=== PATIENT | female | born 1945 | race Caucasian/White ===

== ENCOUNTER 2016-11-03 09:33 | Day surgery (SDC) | payer MEDICARE, OTHER ==
[~2016-11-03 09:33] MED LIST: Lactated Ringers 1,000 ML IV SCH; Lidocaine 1%/Sod Bicarbonate in NS 8.4% 1 ML Syringe PRN; Sodium Chloride 0.9% 10 ML Syringe FLUSH PRN
[2016-11-03] MEDS ORDERED: Propofol 200 MG/20 ML SDV ONE ×3 (10:02→12:17)
--- NOTE | 2016-11-03 10:43 | PCM.PREANE ---
Preanesthetic Assessment - Anesthesia/Transfusion/Family Hx Anesthesia History: Prior Anesthesia Without Reaction Family History of Anesthesia Reaction: No Transfusion History: No Prior Transfusion(s) - Review of Systems General: No Symptoms Pulmonary: No Symptoms Cardiovascular: No Symptoms Gastrointestinal: No symptoms Neurological: No Symptoms Other: Reports: Easy Bruising - Physical Assessment NPO Status Date: 11/02/16 NPO Status Time: 16:00 Pulse: 76 O2 Sat by Pulse Oximetry: 100 Respiratory Rate: 18 Blood Pressure: 134/53 Temperature: 36.5 C Height: 1.7 m Weight: 86.183 kg Mental Status: Alert & Oriented x3 Airway Class: Mallampati = 1 Dentition: Reports: Normal Dentition, Caries Thyro-Mental Finger Breadths: 3 Mouth Opening Finger Breadths: 3 ROM/Head Extension: Full Lungs: Clear to auscultation, Normal respiratory effort Cardiovascular: Regular Rate, Regular Rhythm - Allergies Allergies/Adverse Reactions: Allergies Allergy/AdvReac Type Severity Reaction Status Date / Time No Known Allergies Allergy Verified 11/02/16 14:44 - Anesthesia Plan Pre-Op Medication Ordered: None - Acknowledgements Anesthesia Type Planned: MAC Pt an Appropriate Candidate for the Planned Anesthesia: Yes Alternatives and Risks of Anesthesia Discussed w Pt/Guardian: Yes Pt/Guardian Understands and Agrees with Anesthesia Plan: Yes PreAnesthesia Questionnaire HEENT History: Reports: Cataract Other HEENT History: cross eyed Cardiovascular History: Reports: Hypertension Respiratory History: Reports: Asthma, Sleep apnea, Other (see below) Other Respiratory History: use of cpap/bipap, history of bronchospasms 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 History: Reports: Musculoskeletal History: Other Musculoskeletal History: musle spasms, osteopenia Neurological History: Reports: Neuropathy, peripheral Other Neuro History: balance complications, weakness Psychiatric History: Reports: None Endocrine/Metabolic History: Reports: Hypothyroidism Other Endocrine/Metabolic History: sjdrogrens Hematologic History: Reports: Other (see below) Other Hematologic History: electrolyte imbalances with dehydration Immunologic History: Reports: None Oncologic (Cancer) History: Reports: None Dermatologic History: Reports: None - Past Surgical History HEENT Surgical History: Reports: Cataract surgery, Naso-sinus surgery, Oral surgery, Other (see below) Other HEENT Surgeries/Procedures: rhinoplasty, septoplasty, wisdom tooth extraction GI Surgical History: Reports: Other (see below) Other GI Surgeries/Procedures: sigmoidoscopy Female Surgical History: Reports: section Neurological Surgical History: Reports: Other (see below) Other Neurological Surgeries/Procedures: EEG, spinal tap Musculoskeletal Surgical History: Reports: Other (see below) Other Musculoskeletal Surgeries/Procedures:: fibula fracture and repair, humerus fracture and repair, rotator cuff surgery x3 Oncologic Surgical History: Reports: Other (see below) Other Oncologic Surgeries/Procedures: chemotherapy for sjogrens - SUBSTANCE USE Smoking Status *Q: Never Smoker Tobacco Use Within Last Twelve Months: No Second Hand Smoke Exposure: No Days Per Week of Alcohol Use: 7 Number of Drinks Per Day: 2 Total Drinks Per Week: 14 Recreational Drug Use History: No - HOME MEDS Home Medications: Home Meds Denosumab [Prolia] 60 mg IM ASDIRECTED 09/27/14 [History] Hydroxychloroquine Sulfate [Plaquenil] 400 mg PO DAILY 09/27/14 [History] Levothyroxine [Synthroid] 50 mcg PO ACBREAKFAST 09/27/14 [History] Lisinopril 10 mg PO DAILY 09/27/14 [History] Albuterol [Proair HFA] 1 - 2 puff INH Q4H PRN 11/02/16 [History] Ca Carbonate/Vitamin D3/Vit K [Citracal Soft Chew] 1 tab PO BID 11/02/16 [ History] Cevimeline HCl 30 mg PO TID 11/02/16 [History] Cholecalciferol (Vitamin D3) [Vitamin D3] 1,000 mg PO DAILY 11/02/16 [History] Fish Oil/Borage/Flax/Om3,6,9#1 [[place] 3-6-9 1,200 mg Softgel] 1,200 mg PO DAILY 11/02/16 [History] Fluticasone Propionate [Flonase Allergy Relief] 1 spray NASBOTH DAILY 11/02/16 [ History] Magnesium Oxide 800 mg PO DAILY 11/02/16 [History] Modafinil [Modafinil] 200 mg PO DAILY PRN 11/02/16 [History] Multivitamin [Daily Multiple Vitamin] 1 tab PO DAILY 11/02/16 [History] Naproxen Sodium [Aleve] 1 - 2 tab PO Q6H PRN 11/02/16 [History] Ondansetron [Ondansetron] 4 mg PO TID PRN 11/02/16 [History] cycloSPORINE [Restasis] 1 drop EYEBOTH DAILY 11/02/16 [History] predniSONE [Prednisone] 10 mg PO DAILY PRN 11/02/16 [History] traMADol [Ultram] 50 mg PO TID PRN 11/02/16 [History] - CURRENT (IN HOUSE) MEDS Current Meds: Current Medications Lactated Ringer's (Ringers, Lactated) 1,000 mls @ 125 mls/hr IV ASDIRECTED TRINO Stop: 11/03/16 23:00 Lidocaine/Sodium Bicarbonate (Buffered Lidocaine 1% In Ns 8.4%) 0.25 ml .XX ONETIME PRN PRN Reason: Prior to IV Start Stop: 11/03/16 18:00 Sodium Chloride (Saline Flush) 10 ml FLUSH ASDIRECTED PRN PRN Reason: Keep Vein Open Stop: 11/03/16 18:00 Discontinued Medications Fentanyl (Sublimaze) Confirm Administered Dose 100 mcg .ROUTE .STK-MED ONE Stop: 11/03/16 10:54 Lidocaine HCl (Xylocaine-Mpf 1%) Confirm Administered Dose 4 mls @ as directed .ROUTE .STK-MED ONE Stop: 11/03/16 10:54 Midazolam HCl (Versed 1 Mg/Ml) Confirm Administered Dose 2 mg .ROUTE .STK-MED ONE Stop: 11/03/16 10:54 Propofol (Diprivan 20 Ml) Confirm Administered Dose 200 mg .ROUTE .STK-MED ONE Stop: 11/03/16 10:03
[2016-11-03] MEDS ORDERED: Midazolam 1 MG/ML 2 ML SDV ONE (10:53)
[2016-11-03] MEDS ORDERED: fentaNYL 100 MCG/2 ML SDV ONE (10:53)
[2016-11-03] MEDS ORDERED: Lidocaine 1% 4 ML ONE (10:53)
[2016-11-03] MEDS ORDERED: Lactated Ringers 1,000 ML ONE (12:25)
--- NOTE | 2016-11-03 12:28 | PCM48HPAN ---
Post Anesthesia Note - EVALUATION WITHIN 48HRS OF ANESTHETIC Vital Signs in Normal Range: Yes Patient Participated in Evaluation: Yes Respiratory Function Stable: Yes Airway Patent: Yes Cardiovascular Function Stable: Yes Hydration Status Stable: Yes Pain Control Satisfactory: Yes Nausea and Vomiting Control Satisfactory: Yes Mental Status Recovered: Yes
--- NOTE | 2016-11-03 12:34 | PCM.OPNOTE ---
- General Post-Op/Procedure Note Date of Surgery/Procedure: 11/03/16 Operative Procedure(s): 1. Diagnostic EGD with cold forceps biopsy. 2. Diagnostic colonoscopy with hemorrhoidal banding Pre Op Diagnosis: Rectal bleeding, dysphagia Post-Op Diagnosis: Gastritis, duodenitis, esophagitis, hiatal hernia, internal hemorrhoids [place] [facility] [place]geon: Floresita Adams Anesthesia Provider: Yusef Jones Pathology: 1. Small bowel biopsy 2. Antral biopsy 3. Distal esophageal biopsy Fluid Replacement, Intraop: 600 (mL crystalloid ) EBL in mLs: 1 Complications: None Condition: Good Free Text/Narrative:: INDICATION FOR PROCEDURE: The patient is a 71-year-old woman who was referred to me by Dr. Hogan for evaluation for dysphagia and rectal bleeding. Performing a colonoscopy and EGD and the associated risks of the procedures had been discussed with the patient. The patient found these risks acceptable and agreed to proceed. DESCRIPTION OF PROCEDURE: The patient was taken to the operating room and placed in the left lateral decubitus position. After induction of adequate sedation, a bite block was placed. A standard Olympus gastroscope was inserted into the oropharynx and guided down the esophagus without difficulty. The gastroesophageal junction was appreciated at 35 cm from the teeth. There was no evidence of stricture. There was mild esophagitis at the GE junction. The scope was advanced into the stomach, and there was mild diffuse gastritis. The scope was passed into the proximal jejunum and the duodenum which showed petechia in D1 and D2. There were no ulcerations. The proximal jejunum was grossly normal in appearance. Multiple cold forceps biopsies were obtained of the proximal jejunum and duodenum. The scope was withdrawn into the antrum, and additional cold forceps biopsies were obtained. The remainder of the gastric body was examined, and there were no additional abnormalities. The scope was retroflexed, and there was a sliding hiatal hernia. The hiatus was measured at 39 cm. the hernia was estimated to measure 4 cm in length. The scope was straightened and withdrawn to the GE junction. Additional cold forceps biopsies were obtained of the distal esophagus. The scope was withdrawn through the remainder of the esophagus and no further abnormalities were noted. The posterior oropharynx was grossly normal in appearance. The scope was fully withdrawn and attention was then turned to the colonoscopy. A digital rectal exam was performed which was unremarkable. An adult Olympus colonoscope followed by a pediatric colonoscope was inserted into the rectum and guided under direct visualization to the appendiceal orifice and ileocecal valve. The patient had a history of a lower abdominal midline incision. She did have what felt like adhesive disease and a small palpable ventral hernia. Counter pressure was utilized to navigate the scope. This did increase the difficulty of advancement of the scope, switching to a pediatric colonoscope. The scope was then slowly withdrawn through the colon. The quality of the prep was excellent. There was no evidence of angiodysplasias, diverticulum or mass lesions. The scope was withdrawn into the rectum and retroflexed. There was mild prominence of the patient's internal hemorrhoids. Hemorrhoidal banding was completed. The scope was straightened, the colon was desufflated, and the scope was withdrawn. The patient was awakened from sedation and transferred to the recovery room in stable condition having tolerated the procedure well. POSTOPERATIVE PLAN: I discussed with the patient my intraoperative findings and recommendations. Start omeprazole daily. I have asked the patient to follow a GERD\gastritis diet. Repeat colonoscopy in 10 years unless a change in bowel habits.
[2016-11-03 13:17] VITALS: BP 122/80
== END 2016-11-03 13:20 | disposition home or self-care (01) ==
LOC: JD.SDS 09:33
PROVIDERS: ATTEND Surgery
DX: K29.50 Unspecified chronic gastritis without bleeding (principal); K44.9 Diaphragmatic hernia without obstruction or gangrene; K64.8 Other hemorrhoids; I10 Essential (primary) hypertension; E03.9 Hypothyroidism, unspecified; G47.30 Sleep apnea, unspecified; J45.909 Unspecified asthma, uncomplicated; K21.9 Gastro-esophageal reflux disease without esophagitis
CPT/HCPCS: 43239; 45398; 88305; J2250; J3010; J7120; 00902; J2704

== ENCOUNTER → 2017-01-28 | Day surgery (SDC) | payer MEDICARE, OTHER ==
[~2017-01-28] MED LIST changes: +Albuterol 0.042% 1.25 MG/3 ML Neb Soln NEB ONE; +Albuterol 0.083% 2.5 MG/3 ML Neb Soln NEB ONE; +Ibuprofen 600 MG Tab PO PRN; +Lidocaine 1% 4 ML ONE; +Lidocaine 1% with EPINEPHrine 1:100,000 20 ML MDV ONE; +Lidocaine 1%/Sod Bicarbonate in NS 8.4% 1 ML Syringe IV PRN; -Lidocaine 1%/Sod Bicarbonate in NS 8.4% 1 ML Syringe PRN; +Midazolam 1 MG/ML 2 ML SDV ONE; +Ondansetron 4 MG/2 ML SDV IVPUSH PRN; +Ondansetron 4 MG/2 ML SDV ONE; +Propofol 200 MG/20 ML SDV ONE; +Rocuronium 50 MG/5 ML Vial ONE; +Sodium Chloride 0.9% 50 ML SDV ONE; +ceFAZolin 1 GM Vial ONE; +fentaNYL 100 MCG/2 ML SDV IVPUSH PRN; +fentaNYL 250 MCG/5 ML SDV ONE
--- NOTE | 2017-01-28 07:27 | PCM.PREANE ---
Preanesthetic Assessment - Anesthesia/Transfusion/Family Hx Anesthesia History: Prior Anesthesia Without Reaction Family History of Anesthesia Reaction: No Transfusion History: No Prior Transfusion(s) - Review of Systems General: Malaise Pulmonary: Shortness of Breath ("feels tight") Cardiovascular: No Symptoms Gastrointestinal: No symptoms Neurological: Numbness (Toes and ankles) Other: Reports: Easy Bruising, Thyroid Problems (hypo) - Physical Assessment NPO Status Date: 01/27/17 NPO Status Time: 00:00 Pulse: 71 O2 Sat by Pulse Oximetry: 98 Respiratory Rate: 16 Blood Pressure: 128/80 Temperature: 37.1 C Height: 1.7 m Weight: 86.183 kg ASA Class: 3 Mental Status: Alert & Oriented x3 Airway Class: Mallampati = 1 Dentition: Reports: Normal Dentition Thyro-Mental Finger Breadths: 3 Mouth Opening Finger Breadths: 3 ROM/Head Extension: Full Lungs: Wheezing (left lower base dry) Cardiovascular: Regular Rate, Regular Rhythm, No Murmurs - Lab Values: Laboratory Last Values WBC 5.27 K/mm3 (3.98-10.04) 01/26/17 12:27 RBC 4.20 M/mm3 (3.98-5.22) 01/26/17 12:27 Hgb 13.4 gm/L (11.2-15.7) 01/26/17 12:27 Hct 39.3 % (34.1-44.9) 01/26/17 12:27 MCV 93.6 fl (79.4-94.8) 01/26/17 12:27 MCH 31.9 pg (25.6-32.2) 01/26/17 12:27 MCHC 34.1 g/dl (32.2-35.5) 01/26/17 12:27 RDW Std Deviation 42.4 fL (36.4-46.3) 01/26/17 12:27 Plt Count 168 K/mm3 (182-369) L 01/26/17 12:27 MPV 8.3 fl (9.4-12.3) L 01/26/17 12:27 Neut % (Auto) 64.7 % (34.0-71.1) 01/26/17 12:27 Lymph % (Auto) 21.6 % (19.3-51.7) 01/26/17 12:27 Camp % (Auto) 9.7 % (4.7-12.5) 01/26/17 12:27 Eos % (Auto) 2.7 (0.7-5.8) 01/26/17 12:27 Baso % (Auto) 1.1 % (0.1-1.2) 01/26/17 12:27 Neut # (Auto) 3.41 K/mm3 (1.56-6.13) 01/26/17 12:27 Lymph # (Auto) 1.14 K/mm3 (1.18-3.74) L 01/26/17 12:27 Camp # (Auto) 0.51 K/mm3 (0.24-0.36) H 01/26/17 12:27 Eos # (Auto) 0.14 K/mm3 (0.04-0.36) 01/26/17 12:27 Baso # (Auto) 0.06 K/mm3 (0.01-0.08) 01/26/17 12:27 Sodium 137 mEq/L (136-145) 01/26/17 12:27 Potassium 4.0 mEq/L (3.5-5.1) 01/26/17 12:27 Chloride 102 mEq/L (98-107) 01/26/17 12:27 Carbon Dioxide 25 mEq/L (21-32) 01/26/17 12:27 Anion Gap 14.0 (5-15) 01/26/17 12:27 BUN 13 mg/dL (7-18) 01/26/17 12:27 Creatinine 0.9 mg/dL (0.55-1.02) 01/26/17 12:27 Est Cr Clr Drug Dosing 57.37 mL/min 01/26/17 12:27 Estimated GFR (MDRD) > 60 mL/min (>60) 01/26/17 12:27 BUN/Creatinine Ratio 14.4 (14-18) 01/26/17 12: Glucose 87 mg/dL (80-115) 01/26/17 12:27 Calcium 8.8 mg/dL (8.5-10.1) 01/26/17 12:27 Total Bilirubin 0.6 mg/dL (0.2-1.0) 01/26/17 12:27 AST 21 U/L (15-37) 01/26/17 12:27 ALT 27 U/L (14-59) 01/26/17 12:27 Alkaline Phosphatase 41 U/L (46-116) L 01/26/17 12:27 Total Protein 8.4 g/dl (6.4-8.2) H 01/26/17 12:27 Albumin 3.9 g/dl (3.4-5.0) 01/26/17 12:27 Globulin 4.5 gm/dL 01/26/17 12:27 Albumin/Globulin Ratio 0.9 (1-2) L 01/26/17 12:27 Free T4 1.07 ng/dL (0.76-1.46) 01/26/17 12:27 TSH 3rd Generation 1.919 uIU/mL (0.358-3.74) 01/26/17 12:27 Urine Color Yellow (Yellow) 01/26/17 12:27 Urine Appearance Clear (Clear) 01/26/17 12:27 Urine pH 7.0 (5.0-8.0) 01/26/17 12:27 Ur Specific [place] 1.020 (1.005-1.030) 01/26/17 12:27 Urine Protein Negative (Negative) 01/26/17 12:27 Urine Glucose (UA) Negative (Negative) 01/26/17 12:27 Urine Ketones Negative (Negative) 01/26/17 12:27 Urine Occult Blood Negative (Negative) 01/26/17 12:27 Urine Nitrite Negative (Negative) 01/26/17 12:27 Urine Bilirubin Negative (Negative) 01/26/17 12:27 Urine Urobilinogen 0.2 (0.2-1.0) 01/26/17 12:27 Ur Leukocyte Esterase 1+ (Negative) H 01/26/17 12:27 - Imaging/EKG Impressions: on chart - Allergies Allergies/Adverse Reactions: Allergies Allergy/AdvReac Type Severity Reaction Status Date / Time No Known Allergies Allergy Verified 01/27/17 12:56 - Anesthesia Plan Pre-Op Medication Ordered: None - Acknowledgements Anesthesia Type Planned: Spinal Pt an Appropriate Candidate for the Planned Anesthesia: Yes Alternatives and Risks of Anesthesia Discussed w Pt/Guardian: Yes Pt/Guardian Understands and Agrees with Anesthesia Plan: Yes PreAnesthesia Questionnaire HEENT History: Reports: Cataract Other HEENT History: episodes of bronchospasms Cardiovascular History: Reports: Hypertension Respiratory History: Reports: Asthma, Sleep Apnea, Other (See Below) Other Respiratory History: use of cpap/bipap, history of bronchospasms Gastrointestinal History: Reports: None Genitourinary History: Reports: None [employer]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: Reports: Other Musculoskeletal History: musle spasms, osteopenia Neurological History: Reports: Neuropathy, Peripheral Other Neuro History: balance complications, weakness Psychiatric History: Reports: None Endocrine/Metabolic History: Reports: Hypothyroidism Other Endocrine/Metabolic History: sjdrogrens Hematologic History: Reports: Other (See Below) Other Hematologic History: electrolyte imbalances with dehydration Immunologic History: Reports: None Oncologic (Cancer) History: Reports: None Dermatologic History: Reports: None - Past Surgical History Head Surgeries/Procedures: Reports: None HEENT Surgical History: Reports: Cataract Surgery, Naso-Sinus Surgery, Oral Surgery, Other (See Below) Other HEENT Surgeries/Procedures: rhinoplasty, septoplasty, wisdom tooth extraction GI Surgical History: Reports: Other (See Below) Other GI Surgeries/Procedures: sigmoidoscopy Female Surgical History: Reports: Section Neurological Surgical History: Reports: Other (See Below) Other Neurological Surgeries/Procedures: EEG, spinal tap Musculoskeletal Surgical History: Reports: Other (See Below) Other Musculoskeletal Surgeries/Procedures:: fibula fracture and repair, humerus fracture and repair, rotator cuff surgery x3 Oncologic Surgical History: Reports: Other (See Below) Other Oncologic Surgeries/Procedures: chemotherapy for sjogrens - SUBSTANCE USE Smoking Status *Q: Never Smoker Tobacco Use Within Last Twelve Months: No Second Hand Smoke Exposure: No Days Per Week of Alcohol Use: 7 Number of Drinks Per Day: 2 Total Drinks Per Week: 14 Recreational Drug Use History: No - HOME MEDS Home Medications: Home Meds Denosumab [Prolia] 60 mg IM ASDIRECTED 09/27/14 [History] Hydroxychloroquine Sulfate [Plaquenil] 400 mg PO DAILY 09/27/14 [History] Levothyroxine [Synthroid] 50 mcg PO ACBREAKFAST 09/27/14 [History] Lisinopril 10 mg PO DAILY 09/27/14 [History] Albuterol [Proair HFA] 1 - 2 puff INH Q4H PRN 11/02/16 [History] Ca Carbonate/Vitamin D3/Vit K [Citracal Soft Chew] 1 tab PO BID 11/02/16 [ History] Cevimeline HCl 30 mg PO TID 11/02/16 [History] Cholecalciferol (Vitamin D3) [Vitamin D3] 1,000 mg PO DAILY 11/02/16 [History] Fish Oil/Borage/Flax/Om3,6,9#1 [[place] 3-6-9 1,200 mg Softgel] 1,200 mg PO DAILY 11/02/16 [History] Fluticasone Propionate [Flonase Allergy Relief] 1 spray NASBOTH DAILY 11/02/16 [ History] Magnesium Oxide 800 mg PO DAILY 11/02/16 [History] Modafinil 200 mg PO DAILY PRN 11/02/16 [History] Multivitamin [Daily Multiple Vitamin] 1 tab PO DAILY 11/02/16 [History] Ondansetron 4 mg PO TID PRN 11/02/16 [History] cycloSPORINE [Restasis] 1 drop EYEBOTH DAILY 11/02/16 [History] predniSONE [Prednisone] 10 mg PO DAILY PRN 11/02/16 [History] traMADol [Ultram] 50 mg PO TID PRN 11/02/16 [History] Omeprazole Magnesium [Prilosec Otc] 20 mg PO DAILY #30 tablet. 11/03/16 [Rx] - CURRENT (IN HOUSE) MEDS Current Meds: Current Medications Lactated Ringer's (Ringers, Lactated) 1,000 mls @ 125 mls/hr IV ASDIRECTED TRINO Lidocaine/Sodium Bicarbonate (Buffered Lidocaine 1% In Ns 8.4%) 0.25 ml IV ONETIME PRN PRN Reason: Prior to IV Start Sodium Chloride (Saline Flush) 10 ml FLUSH ASDIRECTED PRN PRN Reason: Keep Vein Open Discontinued Medications Cefazolin Sodium (Ancef) Confirm Administered Dose 2 gm .ROUTE .STK-MED ONE Stop: 01/28/17 07:18 Fentanyl (Sublimaze) Confirm Administered Dose 250 mcg .ROUTE .STK-MED ONE Stop: 01/28/17 07:17 Lidocaine HCl (Xylocaine-Mpf 1%) Confirm Administered Dose 4 mls @ as directed .ROUTE .STK-MED ONE Stop: 01/28/17 07:17 Midazolam HCl (Versed 1 Mg/Ml) Confirm Administered Dose 2 mg .ROUTE .STK-MED ONE Stop: 01/28/17 07:17 Ondansetron HCl (Zofran) Confirm Administered Dose 4 mg .ROUTE .STK-MED ONE Stop: 01/28/17 07:17 Propofol (Diprivan 20 Ml) Confirm Administered Dose 200 mg .ROUTE .STK-MED ONE Stop: 01/28/17 07:17 Rocuronium [place] (Zemuron) Confirm Administered Dose 50 mg .ROUTE .STK-MED ONE Stop: 01/28/17 07:17
--- NOTE | 2017-01-28 09:14 | PCM.POSTAN ---
POST ANESTHESIA ASSESSMENT - MENTAL STATUS Mental Status: alert, oriented - VITAL SIGNS Pulse Rate: 77 SaO2: 99 Resp Rate: 10 Blood Pressure: 112/63 Temperature: 36.8 C - RESPIRATORY Respiratory Status: respiratory rate WNL, airway patent, O2 saturation stable - CARDIOVASCULAR CV Status: pulse rate WNL, blood pressure stable - GASTROINTESTINAL GI Status: no symptoms - PAIN Pain Score: 0 - POST OP HYDRATION Hydration Status: adequate & stable - OBSERVATIONS Free Text/Narrative:: no anesthesia complications noted
--- NOTE | 2017-01-28 09:22 | PCM.OPNOTE ---
- General Post-Op/Procedure Note Date of Surgery/Procedure: 01/28/17 Operative Procedure(s): Posterior vaginal repair with perineoplasty Findings: Grade 1 cystocele, grade 1 uterine descensus and grade 2-3 rectocele Pre Op Diagnosis: Grade 2-3 rectocele Post-Op Diagnosis: Same Anesthesia Technique: Spinal Other Anesthesia Type: Lidocaine quarter percent with epinephrinelocal Primary Surgeon: Chauncey Womack Secondary Surgeon: Sarabjit Cabral Anesthesia Provider: Vipul Francisco Fluid Replacement, Intraop: 900 EBL in mLs: 10 Complications: None Condition: Good Free Text/Narrative:: Surgery duration: 24 minutes Complications: None Specimens: None Procedure: The patient is taken to the operating room and placed in a supine position on the operating table. She received 2 g of Ancef preoperatively for infection prophylaxis. She had sequential compression stockings in place for DVT prophylaxis. Patient was administered spinal anesthesia and administered sedation in addition. She's placed in a dorsal lithotomy position and prepped and draped in the usual fashion. The uppermost portion of the rectocele was identified and was grasped midline with an Allis clamp. The introital area was grasped at approximately the 4:00 and 8:00 positions at the junction of the vaginal and vulvar epithelium. The area of epithelium was then infiltrated with lidocaine quarter percent with epinephrine. A magdalene-shaped piece of epithelium was removed from the posterior introital and perineal area. The vaginal epithelium was then undermined superiorly to the top of the rectocele. Was then incised midline. With sharp and blunt dissection the epithelium was then dissected off of the underlying vesicovaginal fascia. At this point approximately 5 sutures of 0 Monocryl were placed to reapproximate the lateral supportive tissue midline and reduce the rectocele. The excess epithelium was then excised and the epithelium overlying the rectocele repair was then reapproximated with a running suture of 3-0 Monocryl. Perineoplasty was then performed with approximately 3 V-shaped stitches of 0 Monocryl in placed to reapproximate the lateral tissue midline, rebuild the perineum about 1 cm and the vagina approximately 1 cm. The epithelium of the introitus and perineal body was then reapproximated using 3-0 Monocryl in an episiotomy repair fashion. At this time sponge, instrument and needle counts were correct. The patient was returned to supine position and was discharged from the operating room in good condition.
[2017-01-28 11:57] VITALS: BP 130/69
== END | disposition home or self-care (01) ==
LOC: JD.SDS 06:58
PROVIDERS: ATTEND Obstetrics & Gynecology
PROC: 0JQC0ZZ Repair Pelvic Region Subcutaneous Tissue and Fascia, Open Approach (ICD-10-PCS; principal; 2017-01-28)
PROC: 0HQ9XZZ Repair Perineum Skin, External Approach (ICD-10-PCS; 2017-01-28)
DX: N81.6 Rectocele (principal); N81.2 Incomplete uterovaginal prolapse; I10 Essential (primary) hypertension; J45.909 Unspecified asthma, uncomplicated; G47.30 Sleep apnea, unspecified; E03.9 Hypothyroidism, unspecified; M35.00 Sjogren syndrome, unspecified; G62.9 Polyneuropathy, unspecified; Z99.89 Dependence on other enabling machines and devices; Z98.49 Cataract extraction status, unspecified eye; Z98.890 Other specified postprocedural states; Z79.899 Other long term (current) drug therapy; Z79.51 Long term (current) use of inhaled steroids; Z87.898 Personal history of other specified conditions
CPT/HCPCS: 57250; 80053; 81003; 84439; 84443; 85025; 94664; J0690; J2250; J2405; J3010; J7120; 00940; 99212; J2704

== ENCOUNTER 2020-02-07 16:01 | Emergency (ER) | payer MEDICARE, OTHER ==
[2020-02-07 16:15] VITALS: BP 158/82; PULSE 79
[2020-02-07] MEDS ORDERED: Orphenadrine 100 MG Tab.ER PO ONE (16:54)
[2020-02-07] MEDS ORDERED: predniSONE 20 MG Tab PO ONE (16:54)
--- NOTE | 2020-02-07 17:02 | EDM.PDOC ---
ED HPI GENERAL MEDICAL PROBLEM - General Chief Complaint: Back Pain or Injury Stated Complaint: BACK AND LEG PAIN Time Seen by Provider: 02/07/20 16:10 Source of Information: Reports: Patient, RN Notes Reviewed History Limitations: Reports: No Limitations - History of Present Illness INITIAL COMMENTS - FREE TEXT/NARRATIVE: Patient is a 74-year-old female who presents to the ED for the evaluation of her lower back pain. Patient states that she has issues with her lower back normally, and that she was sitting on the toilet yesterday morning, and ended up twisting and or bending a different way, when she states she "tweaked her back". She states she had pain after this, and is having issues doing any sort of stooping/bending activities. She states the pain does come in waves, does worsen with movement and with load/weightbearing. Patient notes that she is doing PT twice per week, to strengthen legs, and balance issues. Patient states she does not use any sort of walker or cane at home. Patient states her pain is better when she lays flat, and the pain worsens when she is standing, or sitting erect. Patient states that she does have tramadol, did take a dose of this at 8:30 AM, and seems to help a little bit but it does not seem to take the pain away much at all. She denies any urinary issues, incontinence of stool or bladder, no saddle anesthesia. States the pain does not seem to radiate down her legs. She does note a burning sensation down her legs. Patient denies any other sick-like symptoms, fever/chills, cough/shortness of breath, nausea/vomi ting/diarrhea, or any abdominal pain. 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 Lower Back Pain Score (Numeric/FACES): 4 - Related Data Allergies Allergy/AdvReac Type Severity Reaction Status Date / Time No Known Allergies Allergy Verified 01/27/17 12:56 Home Meds: Home Meds Hydroxychloroquine Sulfate [Plaquenil] 400 mg PO DAILY 09/27/14 [History] Levothyroxine [Synthroid] 50 mcg PO ACBREAKFAST 09/27/14 [History] Lisinopril 10 mg PO DAILY 09/27/14 [History] Albuterol [Proair HFA] 1 - 2 puff INH Q4H PRN 11/02/16 [History] Cevimeline HCl 30 mg PO TID 11/02/16 [History] Cholecalciferol (Vitamin D3) [Vitamin D3] 1,000 mg PO DAILY 11/02/16 [History] Fish Oil/Borage/Flax/Om3,6,9 1 [[place] 3-6-9 1,200 mg Softgel] 1,200 mg PO DAILY 11/02/16 [History] Fluticasone Propionate [Flonase Allergy Relief] 1 spray NASBOTH DAILY 11/02/16 [History] Magnesium Oxide 800 mg PO DAILY 11/02/16 [History] Multivitamin [Daily Multiple Vitamin] 1 tab PO DAILY 11/02/16 [History] cycloSPORINE [Restasis] 1 drop EYEBOTH DAILY 11/02/16 [History] modafiniL [Modafinil] 200 mg PO DAILY PRN 11/02/16 [History] predniSONE [Prednisone] 10 mg PO DAILY PRN 11/02/16 [History] traMADol [Ultram] 50 mg PO TID PRN 11/02/16 [History] Alpha Lipoic Acid/Herbal 305 [Glucosa Factor Capsule] 600 mg PO DAILY 02/07/20 [History] Aspirin [Aspirin EC] 500 mg PO DAILY 02/07/20 [History] Methotrexate 25 mg PO DAILY 02/07/20 [History] Orphenadrine [Norflex] 100 mg PO BID PRN #20 tab 02/07/20 [Rx] predniSONE 20 mg PO ASDIRECTED #15 tab 02/07/20 [Rx] Past Medical History HEENT History: Reports: Cataract Other HEENT History: episodes of bronchospasms Cardiovascular History: Reports: Hypertension Respiratory History: Reports: Asthma, Sleep Apnea, Other (See Below) Other Respiratory History: use of cpap/bipap, history of bronchospasms 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: Musculoskeletal History: Reports: Other (See Below) Other Musculoskeletal History: musle spasms, osteopenia Neurological History: Reports: Neuropathy, Peripheral Other Neuro History: balance complications, weakness;ataxia Endocrine/Metabolic History: Reports: Hypothyroidism Other Endocrine/Metabolic History: sjogren's Hematologic History: Reports: Other (See Below) Other Hematologic History: electrolyte imbalances with dehydration - Past Surgical History HEENT Surgical History: Reports: Cataract Surgery, Naso-Sinus Surgery, Oral Surgery, Other (See Below) Other HEENT Surgeries/Procedures: rhinoplasty, septoplasty, wisdom tooth extraction GI Surgical History: Reports: Colonoscopy, Other (See Below) Other GI Surgeries/Procedures: sigmoidoscopy Female Surgical History: Reports: Section Neurological Surgical History: Reports: Other (See Below) Other Neurological Surgeries/Procedures: EEG, spinal tap Musculoskeletal Surgical History: Reports: Other (See Below) Other Musculoskeletal Surgeries/Procedures:: fibula fracture and repair, humerus fracture and repair, rotator cuff surgery x3 Oncologic Surgical History: Reports: Other (See Below) Other Oncologic Surgeries/Procedures: chemotherapy for sjogrens Social & Family History - Tobacco Use Smoking Status *Q: Never Smoker - Caffeine Use Caffeine Use: Reports: Coffee - Recreational Drug Use Recreational Drug Use: No ED ROS GENERAL - Review of Systems Review Of Systems: Comprehensive ROS is negative, except as noted in HPI. ED EXAM,LOWER BACK PAIN/INJURY - Physical Exam Exam: See Below Exam Limited By: No Limitations General Appearance: Alert, WD/WN, No Apparent Distress Respiratory/Chest: No Respiratory Distress, Lungs Clear, Normal Breath Sounds, No Accessory Muscle Use, Chest Non-Tender Cardiovascular: Normal Peripheral Pulses, Regular Rate, Rhythm, No Edema, No Murmur Extremities: Normal Inspection, Normal Capillary Refill Neurological: Alert, Normal Mood/Affect, Normal Dorsiflexion, Normal Plantar Flexion, Normal Gait (has a slow steady gait and makes deliberate movements to not aggravate the pain.), No Motor/Sensory Deficits, Oriented x 3, Straight Leg Raise (L). No: Straight Leg Raise (R), Saddle Anesthesia Psychiatric: Normal Affect, Normal Mood Skin Exam: Warm, Dry, Intact, Normal Color, No Rash Course - Vital Signs Last Recorded V/S: Last Vital Signs Temp 97.5 F 02/07/20 16:14 Pulse 79 02/07/20 16:14 Resp 20 02/07/20 16:14 BP 158/82 H 02/07/20 16:14 Pulse Ox 99 02/07/20 16:14 - Orders/Labs/Meds Meds: Medications Discontinued Medications Generic Name Dose Route Start Last Admin Trade Name Freq PRN Reason Stop Dose Admin Orphenadrine Citrate 100 mg 02/07/20 16:54 02/07/20 17:06 Norflex PO 02/07/20 16:55 100 mg ONETIME ONE Administration Prednisone 40 mg 02/07/20 16:54 02/07/20 17:05 Prednisone PO 02/07/20 16:55 40 mg ONETIME ONE Administration - Re-Assessments/Exams Free Text/Narrative Re-Assessment/Exam: 02/07/20 16:59 Patient presents to the ED for evaluation of her lower back pain. I do believe this is more SI joint dysfunction in nature, rather than sciatic inflammation. Nonetheless we will trial the patient on prednisone along with some Norflex, as I do believe there is a muscle spasm component attributing to her pain. Patient was okay with this plan at this time. 02/07/20 18:15 Patient states that she is feeling better, she was able to get up to the bathroom with little difficulty, states there is still a little bit of pain but is much better than it was. We will discharge her home with the above plan and general recommendations. Departure - Departure Time of Disposition: 18:16 Disposition: Home, Self-Care 01 Condition: Good Clinical Impression: SI (sacroiliac) joint dysfunction - Discharge Information *PRESCRIPTION DRUG MONITORING PROGRAM REVIEWED*: No *COPY OF PRESCRIPTION DRUG MONITORING REPORT IN PATIENT MAYNOR: No Prescriptions: Orphenadrine [Norflex] 100 mg PO BID PRN #20 tab PRN Reason: Spasms predniSONE 20 mg PO ASDIRECTED #15 tab Instructions: Sacroiliac Joint Dysfunction Referrals: Evan Hogan MD [Primary Care Provider] - Forms: ED Department Discharge Additional Instructions: You have been evaluated in the ED for your low back pain. Please use ice/heat as tolerated to the affected area. You were given a prescription for prednisone, please take as directed. You were also given a prescription for Norflex for muscle spasms, please take 1 tab 2 times a day as needed for further muscle spasms. You may try half tab of the Vicodin prescription you have at home to provide further pain relief, please use as previously directed or half tab every 4-6 hours as needed for further pain relief. This particular medication can cause constipation, recommend you take a stool softener like MiraLAX while using this medication. Please do not drive while taking this medication. Please be aware that taking the Vicodin and Norflex together, can cause increased respiratory sedation. I would recommend taking 1 or the other for pain relief. Do not take them together. Please return to ED if your symptoms should change or worsen. Sepsis Event Note (ED) - Evaluation Sepsis Screening Result: No Definite Risk - Focused Exam Vital Signs: Vital Signs Temp Pulse Resp BP Pulse Ox 02/07/20 16:14 97.5 F 79 20 158/82 H 99
== END 2020-02-07 18:23 | disposition home or self-care (01) ==
LOC: JD.ED 16:01
DX: M53.3 Sacrococcygeal disorders, not elsewhere classified (principal); I10 Essential (primary) hypertension; E03.9 Hypothyroidism, unspecified; J45.909 Unspecified asthma, uncomplicated; G62.9 Polyneuropathy, unspecified; Z79.82 Long term (current) use of aspirin; Z79.899 Other long term (current) drug therapy
CPT/HCPCS: 99283; A9270; J7512

== ENCOUNTER 2021-05-18 08:32 | Day surgery (SDC) | payer MEDICARE, OTHER ==
[~2021-05-18 08:32] MED LIST changes: +Acetaminophen 325 MG Tab PO SCH; -Albuterol 0.042% 1.25 MG/3 ML Neb Soln NEB ONE; -Albuterol 0.083% 2.5 MG/3 ML Neb Soln NEB ONE; -Ibuprofen 600 MG Tab PO PRN; -Lidocaine 1% 4 ML ONE; -Lidocaine 1% with EPINEPHrine 1:100,000 20 ML MDV ONE; +Lidocaine 1%/Sod Bicarbonate in NS 8.4% 1 ML Syringe IDERM PRN; -Lidocaine 1%/Sod Bicarbonate in NS 8.4% 1 ML Syringe IV PRN; -Midazolam 1 MG/ML 2 ML SDV ONE; -Ondansetron 4 MG/2 ML SDV IVPUSH PRN; -Ondansetron 4 MG/2 ML SDV ONE; +Pregabalin 25 MG Cap PO SCH; -Propofol 200 MG/20 ML SDV ONE; -Rocuronium 50 MG/5 ML Vial ONE; -Sodium Chloride 0.9% 50 ML SDV ONE; -ceFAZolin 1 GM Vial ONE; -fentaNYL 100 MCG/2 ML SDV IVPUSH PRN; -fentaNYL 250 MCG/5 ML SDV ONE; +oxyCODONE ER 10 MG TAB.ER PO SCH
--- NOTE | 2021-05-18 09:38 | PCM.PREANE ---
Preanesthetic Assessment - Anesthesia/Transfusion/Family Hx Anesthesia History: Prior Anesthesia Without Reaction Family History of Anesthesia Reaction: No Transfusion History: No Prior Transfusion(s) Intubation History: Unknown - Review of Systems General: No Symptoms Pulmonary: No Symptoms Cardiovascular: No Symptoms Gastrointestinal: No Symptoms Neurological: No Symptoms Other: Reports: Thyroid Problems - Physical Assessment NPO Status Date: 05/18/21 NPO Status Time: 04:30 ASA Class: 2 Mental Status: Alert & Oriented x3 Airway Class: Mallampati = 1 Dentition: Reports: Normal Dentition Thyro-Mental Finger Breadths: 3 Mouth Opening Finger Breadths: 3 ROM/Head Extension: Full Lungs: Clear to Auscultation, Normal Respiratory Effort Cardiovascular: Regular Rate, Regular Rhythm - Allergies Allergies/Adverse Reactions: Allergies Allergy/AdvReac Type Severity Reaction Status Date / Time No Known Allergies Allergy Verified 05/15/21 14:37 - Acknowledgements Anesthesia Type Planned: Spinal, Regional Block Pt an Appropriate Candidate for the Planned Anesthesia: Yes Alternatives and Risks of Anesthesia Discussed w Pt/Guardian: Yes Pt/Guardian Understands and Agrees with Anesthesia Plan: Yes PreAnesthesia Questionnaire HEENT History: Reports: Cataract Other HEENT History: episodes of bronchospasms Cardiovascular History: Reports: Angina, Hypertension Respiratory History: Reports: Asthma, Sleep Apnea Other Respiratory History: use of cpap/bipap, history of bronchospasms Gastrointestinal History: Reports: Gastritis, GERD, Hemorrhoids, Hiatal Hernia Genitourinary History: Reports: None 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: Musculoskeletal History: Reports: Back Pain, Chronic, Fracture Other Musculoskeletal History: musle spasms, osteopenia Neurological History: Reports: Neuropathy, Peripheral Other Neuro History: balance complications, weakness;ataxia Psychiatric History: Reports: None Endocrine/Metabolic History: Reports: Hypothyroidism Other Endocrine/Metabolic History: sjogren's Hematologic History: Reports: Other (See Below) Other Hematologic History: electrolyte imbalances with dehydration Immunologic History: Reports: None Oncologic (Cancer) History: Reports: None Other Oncologic History: bone cytology Dermatologic History: Reports: None Other Dermatologic History: sjogrens - Past Surgical History HEENT Surgical History: Reports: Cataract Surgery, Oral Surgery Other HEENT Surgeries/Procedures: rhinoplasty, septoplasty Cardiovascular Surgical History: Reports: None Respiratory Surgical History: Reports: None GI Surgical History: Reports: Colonoscopy, EGD Other GI Surgeries/Procedures: sigmoidoscopy Female Surgical History: Reports: Section Endocrine Surgical History: Reports: None Other Neurological Surgeries/Procedures: spinal tap Other Musculoskeletal Surgeries/Procedures:: left fibula fracture, righ humerus fracture with surgery and right RCR - SUBSTANCE USE Tobacco Use Status *Q: Never Tobacco User Tobacco Use Within Last Twelve Months: No Second Hand Smoke Exposure: No Days Per Week of Alcohol Use: 2 Recreational Drug Use History: No - HOME MEDS Home Medications: Home Meds Hydroxychloroquine Sulfate [Plaquenil] 400 mg PO DAILY 09/27/14 [History] Levothyroxine [Synthroid] 50 mcg PO ACBREAKFAST 09/27/14 [History] Lisinopril 10 mg PO DAILY 09/27/14 [History] Albuterol [Proair HFA] 1 - 2 puff INH Q4H PRN 11/02/16 [History] Cevimeline HCl 30 mg PO TID 11/02/16 [History] Cholecalciferol (Vitamin D3) [Vitamin D3] 1,000 mg PO DAILY 11/02/16 [History] Fish Oil/Borage/Flax/Om3,6,9 1 [[place] 3-6-9 1,200 mg Softgel] 1,200 mg PO DAILY 11/02/16 [History] Fluticasone Propionate [Flonase Allergy Relief] 1 spray NASBOTH DAILY 11/02/16 [History] Magnesium Oxide 800 mg PO DAILY 11/02/16 [History] Multivitamin [Daily Multiple Vitamin] 1 tab PO DAILY 11/02/16 [History] cycloSPORINE [Restasis] 1 drop EYEBOTH DAILY 11/02/16 [History] modafiniL [Modafinil] 200 mg PO DAILY PRN 11/02/16 [History] Alpha Lipoic Acid/Herbal 305 [Glucosa Factor Capsule] 600 mg PO DAILY 02/07/20 [History] Methotrexate 25 mg PO DAILY 02/07/20 [History] Orphenadrine [Norflex] 100 mg PO BID PRN #20 tab 02/07/20 [Rx] Aspirin [Aspirin EC] 325 mg PO BID #84 tab 05/18/21 [Rx] oxyCODONE 5 - 10 mg PO Q4H PRN #40 tab 05/18/21 [Rx] - CURRENT (IN HOUSE) MEDS Current Meds: Current Medications Acetaminophen (Acetaminophen 325 Mg Tab) 975 mg PO ONETIME TRINO Stop: 05/18/21 13:00 Last Admin: 05/18/21 09:24 Dose: 975 mg Documented by: Morphine Sulfate 8 mg/Epinephrine HCl 0.3 mg/Cefuroxime Sodium 750 mg/Ketorolac Tromethamine 30 mg/Sodium Chloride 7.9 ml 0 mg .XX ASDIRECTED PRN PRN Reason: Pain Stop: 05/18/21 16:00 Lactated Ringer's (Ringers, Lactated) 1,000 mls @ 125 mls/hr IV ASDIRECTED TRINO Stop: 05/18/21 23:00 Last Admin: 05/18/21 09:10 Dose: 125 mls/hr Documented by: Lidocaine/Sodium Bicarbonate (Lidocaine 1%/Sod Bicarbonate In Ns 8.4% 1 Ml Syringe) 0.25 ml IDERM ONETIME PRN PRN Reason: Prior to IV Start Stop: 05/18/21 18:00 Oxycodone HCl (Oxycodone Er 10 Mg Tab.Er) 10 mg PO ONETIME TRINO Stop: 05/18/21 13:00 Last Admin: 05/18/21 09:24 Dose: 10 mg Documented by: Pregabalin (Pregabalin 25 Mg Cap) 50 mg PO ONETIME TRINO Stop: 05/18/21 13:00 Last Admin: 05/18/21 09:24 Dose: 50 mg Documented by: Sodium Chloride (Sodium Chloride 0.9% 10 Ml Syringe) 10 ml FLUSH ASDIRECTED PRN PRN Reason: Keep Vein Open Stop: 05/18/21 18:00 Discontinued Medications Tranexamic Acid (Tranexamic Acid 1,000 Mg/10 Ml Amp) Confirm Administered Dose 1,000 mg .ROUTE .STK-MED ONE Stop: 05/18/21 08:55 Vancomycin HCl (Vancomycin 1 Gm Sdv) Confirm Administered Dose 1 gm .ROUTE .STK- MED ONE Stop: 05/18/21 08:55
[2021-05-18] MEDS ORDERED: Propofol 200 MG/20 ML SDV ONE ×3 (09:49→11:21)
[2021-05-18] MEDS ORDERED: Lidocaine 1% 4 ML ONE (09:49)
[2021-05-18] MEDS ORDERED: fentaNYL 100 MCG/2 ML SDV ONE (09:50)
[2021-05-18] MEDS ORDERED: ceFAZolin 1 GM Vial ONE (09:51)
[2021-05-18] MEDS ORDERED: Lactated Ringers 1,000 ML ONE (09:52)
[2021-05-18] MEDS ORDERED: EPINEPHrine 1 MG/ML SDV ONE (09:56)
[2021-05-18] MEDS ORDERED: Ropivacaine 0.5% 5 MG/ML 30 ML SDV ONE (09:56)
[2021-05-18] MEDS ORDERED: ePHEDrine 50 MG/ML SDV ONE (10:39)
[2021-05-18] MEDS ORDERED: Ondansetron 4 MG/2 ML SDV IVPUSH PRN ×2 (10:55→15:42)
[2021-05-18] MEDS ORDERED: fentaNYL 100 MCG/2 ML SDV IVPUSH PRN (10:55)
[2021-05-18] MEDS: Morphine 8 MG, EPINEPHrine 0.3 MG, Cefuroxime 750 MG, Ketorolac 30 MG, Sodium Chloride ... PRN ×10 (11:10→11:25)
[2021-05-18] MEDS: Vancomycin 1 GM SDV ONE ×2 (11:10→11:31)
[2021-05-18] MEDS ORDERED: Ondansetron 4 MG/2 ML SDV ONE (11:15)
[2021-05-18] MEDS ORDERED: Ketorolac 30 MG/ML SDV ONE (11:15)
--- NOTE | 2021-05-18 11:58 | PCM.POSTAN ---
POST ANESTHESIA ASSESSMENT - MENTAL STATUS Mental Status: Alert, Oriented - VITAL SIGNS Vital Signs: Last Vital Signs Temp 36.6 C 05/18/21 08:45 Pulse 77 05/18/21 08:45 Resp 20 05/18/21 08:45 BP 159/73 H 05/18/21 08:45 Pulse Ox 98 05/18/21 08:45 - RESPIRATORY Respiratory Status: Respiratory Rate WNL, Airway Patent, O2 Saturation Stable, Supplemental Oxygen - CARDIOVASCULAR CV Status: Pulse Rate WNL, Blood Pressure Stable - GASTROINTESTINAL GI Status: No Symptoms - PAIN Pain Score: 0 - POST OP HYDRATION Hydration Status: Adequate & Stable
--- NOTE | 2021-05-18 12:35 | PCM.PRNOTE ---
- Free Text/Narrative Note: Right selective femoral nerve block at the adductor canal for post-procedure pain control under US guidance requested by Dr. Johnson. Time Out: 1209 Start: 1210 End: 1223 Chart reviewed. Consent signed. Questions answered. Appropriate monitors applied. Time out performed. Right mid-shaft femur identified with ultrasound, scanning medially of femur, the femoral artery in the adductor canal visualized, and the femoral nerve located laterally to the artery. The skin was prepped lateral to the ultrasound probe with chlorahexadine times two. The 21ga 4 insulated block needle was inserted under direct ultrasound guidance into the adductor canal. 25mL of 0.5% ropivacaine with 1:200,000 epinephrine was injected circumferentially around the nerve with intermittent negative aspiration noted. Patient tolerated the procedure well. Sterile technique noted along with sterile gloves, mask, and sterile probe cover. See picture on progress note and vital signs on nurses notes. Block completed in PACU. Milagros Reynolds CRNA
--- NOTE | 2021-05-18 12:35 | PCM48HPAN ---
Post Anesthesia Note - EVALUATION WITHIN 48HRS OF ANESTHETIC Vital Signs in Normal Range: Yes Patient Participated in Evaluation: Yes Respiratory Function Stable: Yes Airway Patent: Yes Cardiovascular Function Stable: Yes Hydration Status Stable: Yes Pain Control Satisfactory: Yes Nausea and Vomiting Control Satisfactory: Yes Mental Status Recovered: Yes Vital Signs: Last Vital Signs Temp 36.3 C 05/18/21 11:51 Pulse 77 05/18/21 08:45 Resp 19 05/18/21 12:00 BP 119/52 L 05/18/21 12:00 Pulse Ox 100 05/18/21 12:00
--- NOTE | 2021-05-18 12:50 | CR ---
Right knee: AP and crosstable lateral views of the right knee were obtained. Comparison: Prior CT right knee study of 05/13/21. Knee prosthesis is noted as well as patellar prosthesis. Soft tissue air is seen. Bony structures show nothing acute. Impression: 1. Satisfactory postoperative radiographic appearance of recently placed right knee prostheses. Diagnostic code #2
[2021-05-18] MEDS: oxyCODONE 5 MG Tab PO PRN ×3 (14:02→23:09)
[2021-05-18] MEDS ORDERED: ALBUTEROL INH PRN (15:39)
[2021-05-18] MEDS ORDERED: ORPHENADRINE 100 MG PO PRN (15:39)
[2021-05-18] MEDS ORDERED: MODAFINIL 200 MG PO PRN (15:39)
[2021-05-18] MEDS ORDERED: Naloxone 0.4 MG/ML SDV IVPUSH PRN (15:42)
[2021-05-18] MEDS ORDERED: Cyclobenzaprine 10 MG Tab PO PRN (15:49)
[2021-05-18] MEDS ORDERED: Ketorolac 15 MG/ML SDV IVPUSH PRN (17:00)
[2021-05-18] MEDS ORDERED: CEVIMELINE HCL 30 MG PO SCH (21:00)
[2021-05-19] MEDS: oxyCODONE 5 MG Tab PO PRN ×3 (03:29→13:08)
[2021-05-19] MEDS ORDERED: LEVOTHYROXINE 50 MCG PO SCH (06:00)
[2021-05-19] MEDS ORDERED: Non-Formulary Medication 1 Each (Methotrexate [Methotrexate] 2.5 MG Tablet) PO SCH (09:00)
[2021-05-19] MEDS ORDERED: Non-Formulary Medication 1 Each (Fluticasone Propionate 9.9 ML Spray.Susp) NASBOTH SCH (09:00)
[2021-05-19] MEDS ORDERED: Aspirin 325 MG Tab.EC PO SCH (09:00)
[2021-05-19] MEDS ORDERED: Non-Formulary Medication 1 Each (Magnesium Oxide [Magnesium Oxide] 400 MG Tablet) PO SCH (09:00)
[2021-05-19] MEDS ORDERED: Non-Formulary Medication 1 Each (Cyclosporine [Restasis] 1 EACH Each) EYEBOTH SCH (09:00)
[2021-05-19] MEDS ORDERED: HYDROXYCHLOROQUINE SULFATE 200 MG PO SCH (09:00)
[2021-05-19] MEDS ORDERED: [UNRECOGNIZED DRUG - OTHER] PO SCH (09:00)
[2021-05-19] MEDS ORDERED: Non-Formulary Medication 1 Each (Lisinopril [Lisinopril] 10 MG Tablet) PO SCH (09:00)
[2021-05-19] MEDS ORDERED: CHOLECALCIFEROL 1000 UNIT PO SCH (09:00)
[2021-05-19 09:19] VITALS: BP 140/63; PULSE 82
--- NOTE | 2021-05-19 12:27 | PCM.SURGPN ---
- General Info Date of Service: 05/19/21 POD#: 1 Functional Status: Reports: Other (Ortho notified that pt's Mepilex was saturated. Pt has met P.T. goals. She has d/c plans in place.) - Patient Data Vitals - Most Recent: Last Vital Signs Temp 99.7 F 05/19/21 08:40 Pulse 82 05/19/21 08:40 Resp 16 05/19/21 08:40 BP 140/63 05/19/21 08:40 Pulse Ox 93 L 05/19/21 08:40 Weight - Most Recent: 224 lb 10.42 oz I&O - Last 24 Hours: Intake & Output 05/18/21 05/19/21 05/19/21 22:59 06:59 14:59 Intake Total 120 Balance 120 Med Orders - Current: Current Medications Aspirin (Aspirin 325 Mg Tab.Ec) 325 mg PO BID TRINO Last Admin: 05/19/21 08:46 Dose: 325 mg Documented by: Cyclobenzaprine HCl (Cyclobenzaprine 10 Mg Tab) 10 mg PO BID PRN PRN Reason: Spasms Last Admin: 05/19/21 01:15 Dose: 10 mg Documented by: Ketorolac Tromethamine (Ketorolac 15 Mg/Ml Sdv) 15 mg IVPUSH Q6H PRN PRN Reason: Pain Last Admin: 05/19/21 05:57 Dose: 15 mg Documented by: Naloxone HCl (Naloxone 0.4 Mg/Ml Sdv) 0.1 mg IVPUSH Q5M PRN PRN Reason: Oversedation Non-Formulary Medication (Albuterol [Proair Hfa]) 1 - 2 puff INH Q4H PRN PRN Reason: Shortness of Breath Non-Formulary Medication (Cevimeline Hcl [Cevimeline Hcl]) 30 mg PO TID TRINO Non-Formulary Medication (Cholecalciferol (Vitamin D3) [Vitamin D3]) 1,000 mg PO DAILY TRINO Non-Formulary Medication (Cyclosporine [Restasis]) 1 drop EYEBOTH DAILY TRINO Non-Formulary Medication (Fluticasone Propionate) 1 spray NASBOTH DAILY TRINO Non-Formulary Medication (Hydroxychloroquine Sulfate [Plaquenil]) 400 mg PO DAILY TRINO Non-Formulary Medication (Levothyroxine [Synthroid]) 50 mcg PO ACBREAKFAST TRINO Non-Formulary Medication (Lisinopril [Lisinopril]) 10 mg PO DAILY [facility] Non-Formulary Medication (Magnesium Oxide [Magnesium Oxide]) 800 mg PO DAILY [facility] Non-Formulary Medication (Methotrexate [Methotrexate]) 25 mg PO DAILY [facility] Non-Formulary Medication (Modafinil [Modafinil]) 200 mg PO DAILY PRN PRN Reason: sjogrens symptoms Non-Formulary Medication (Orphenadrine [Norflex]) 100 mg PO BID PRN PRN Reason: Spasms Ondansetron HCl (Ondansetron 4 Mg/2 Ml Sdv) 4 mg IVPUSH Q6H PRN PRN Reason: Nausea/Vomiting Oxycodone HCl (Oxycodone 5 Mg Tab) 5 - 10 mg PO Q4H PRN PRN Reason: Pain Last Admin: 05/19/21 03:29 Dose: 10 mg Documented by: Discontinued Medications Acetaminophen (Acetaminophen 325 Mg Tab) 975 mg PO ONETIME TRINO Stop: 05/18/21 13:00 Last Admin: 05/18/21 09:24 Dose: 975 mg Documented by: Cefazolin Sodium (Cefazolin 1 Gm Vial) Confirm Administered Dose 2 gm .ROUTE .STK-MED ONE Stop: 05/18/21 09:52 Morphine Sulfate 8 mg/Epinephrine HCl 0.3 mg/Cefuroxime Sodium 750 mg/Ketorolac Tromethamine 30 mg/Sodium Chloride 7.9 ml 0 mg .XX ASDIRECTED PRN PRN Reason: Pain Stop: 05/18/21 16:00 Last Admin: 05/18/21 11:25 Dose: 788.3 mg Documented by: Ephedrine Sulfate (Ephedrine 50 Mg/Ml Sdv) Confirm Administered Dose 50 mg .ROUTE .STK-MED ONE Stop: 05/18/21 10:40 Epinephrine HCl (Epinephrine 1 Mg/Ml Sdv) Confirm Administered Dose 1 mg .ROUTE .STK-MED ONE Stop: 05/18/21 09:57 Fentanyl (Fentanyl 100 Mcg/2 Ml Sdv) Confirm Administered Dose 100 mcg .ROUTE .S TK-MED ONE Stop: 05/18/21 09:51 Fentanyl (Fentanyl 100 Mcg/2 Ml Sdv) 50 mcg IVPUSH Q5M PRN PRN Reason: Pain Stop: 05/18/21 18:00 Last Admin: 05/18/21 14:30 Dose: 50 mcg Documented by: Lactated Ringer's (Ringers, Lactated) 1,000 mls @ 125 mls/hr IV ASDIRECTED TRINO Stop: 05/18/21 23:00 Last Admin: 05/18/21 09:10 Dose: 125 mls/hr Documented by: Lidocaine HCl (Xylocaine-Mpf 1%) Confirm Administered Dose 4 mls @ as directed .ROUTE .STK-MED ONE Stop: 05/18/21 09:50 Lactated Ringer's (Ringers, Lactated) Confirm Administered Dose 1,000 mls @ as directed .ROUTE .STK-MED ONE Stop: 05/18/21 09:53 Ketorolac Tromethamine (Ketorolac 30 Mg/Ml Sdv) Confirm Administered Dose 30 mg .ROUTE .STK-MED ONE Stop: 05/18/21 11:16 Lidocaine/Sodium Bicarbonate (Lidocaine 1%/Sod Bicarbonate In Ns 8.4% 1 Ml Syringe) 0.25 ml IDERM ONETIME PRN PRN Reason: Prior to IV Start Stop: 05/18/21 18:00 Ondansetron HCl (Ondansetron 4 Mg/2 Ml Sdv) 4 mg IVPUSH ONETIME PRN PRN Reason: Nausea/Vomiting Stop: 05/18/21 18:00 Last Admin: 05/18/21 15:25 Dose: 4 mg Documented by: Ondansetron HCl (Ondansetron 4 Mg/2 Ml Sdv) Confirm Administered Dose 4 mg .ROUTE .STK-MED ONE Stop: 05/18/21 11:16 Oxycodone HCl (Oxycodone Er 10 Mg Tab.Er) 10 mg PO ONETIME [facility] Stop: 05/18/21 13:00 Last Admin: 05/18/21 09:24 Dose: 10 mg Documented by: Oxycodone HCl (Oxycodone 5 Mg Tab) 5 - 10 mg PO Q4H PRN PRN Reason: Pain Last Admin: 05/19/21 08:47 Dose: 10 mg Documented by: Pregabalin (Pregabalin 25 Mg Cap) 50 mg PO ONETIME TRINO Stop: 05/18/21 13:00 Last Admin: 05/18/21 09:24 Dose: 50 mg Documented by: Propofol (Propofol 200 Mg/20 Ml Sdv) Confirm Administered Dose 200 mg .ROUTE .STK-MED ONE Stop: 05/18/21 09:50 Propofol (Propofol 200 Mg/20 Ml Sdv) Confirm Administered Dose 200 mg .ROUTE .STK-MED ONE Stop: 05/18/21 10:44 Propofol (Propofol 200 Mg/20 Ml Sdv) Confirm Administered Dose 200 mg .ROUTE .STK-MED ONE Stop: 05/18/21 11:22 Ropivacaine (Ropivacaine 0.5% 5 Mg/Ml 30 Ml Sdv) Confirm Administered Dose 30 ml .ROUTE .STK-MED ONE Stop: 05/18/21 09:57 Sodium Chloride (Sodium Chloride 0.9% 10 Ml Syringe) 10 ml FLUSH ASDIRECTED PRN PRN Reason: Keep Vein Open Stop: 05/18/21 18:00 Tranexamic Acid (Tranexamic Acid 1,000 Mg/10 Ml Amp) Confirm Administered Dose 1,000 mg .ROUTE .STK-MED ONE Stop: 05/18/21 08:55 Last Admin: 05/18/21 11:31 Dose: 1,000 mg Documented by: Vancomycin HCl (Vancomycin 1 Gm Sdv) Confirm Administered Dose 1 gm .ROUTE .STK- MED ONE Stop: 05/18/21 08:55 Last Admin: 05/18/21 11:31 Dose: 1 gm Documented by: - Exam Wound/Incisions: Other (Dried blood noted at majority of Mepilex dressing. Possibly more recent bleeding noted at inferior portion. ) Extremities: Other (NVS intact for RLE. Pt completed assisted SLR. No calf tenderness noted with exam today.) Sepsis Event Note - Evaluation Sepsis Screening Result: No Definite Risk - Focused Exam Vital Signs: Vital Signs Temp Pulse Resp BP Pulse Ox 05/19/21 08:40 99.7 F 82 16 140/63 93 L 05/19/21 03:28 99.7 F 73 20 138/61 99 - Problem List Review Problem List Initiated/Reviewed/Updated: Yes - My Orders Last 24 Hours: Active Orders 24 hr Category Date Time Status Ambulate [RC] PER UNIT ROUTINE Care 05/18/21 15:42 Active Antiembolic Devices [RC] PER UNIT ROUTINE Care 05/18/21 15:41 Active Antiembolic Devices [RC] PER UNIT ROUTINE Care 05/18/21 15:42 Active CPAP Adult [RT BiPAP/CPAP] [RC] ASDIRECTED Care 05/18/21 18:25 Active Communication Order [RC] ASDIRECTED Care 05/18/21 15:42 Active May Shower [RC] ASDIRECTED Care 05/18/21 15:42 Active Oxygen Therapy [RC] PRN Care 05/18/21 15:42 Active RT Incentive Spirometry [RC] Q1HWA Care 05/18/21 15:41 Active Up to Chair [RC] ASDIRECTED Care 05/18/21 15:42 Active OT Evaluation and Treatment [CONS] Routine Cons 05/18/21 15:41 Active PT Evaluation and Treatment [CONS] Routine Cons 05/18/21 15:41 Active Albuterol [Proair HFA] Med 05/18/21 15:39 Pending 1 - 2 puff INH Q4H PRN Aspirin [Ecotrin] Med 05/19/21 09:00 Active 325 mg PO BID Cevimeline HCl [Cevimeline HCl] Med 05/18/21 21:00 Pending 30 mg PO TID Cholecalciferol (Vitamin D3) [Vitamin D3] Med 05/19/21 09:00 Pending 1,000 mg PO DAILY Cyclobenzaprine [Flexeril] Med 05/18/21 15:49 Active 10 mg PO BID PRN Fluticasone Propionate Med 05/19/21 09:00 Pending 1 spray NASBOTH DAILY Hydroxychloroquine Sulfate [Plaquenil] Med 05/19/21 09:00 Pending 400 mg PO DAILY Ketorolac [Toradol] Med 05/18/21 17:00 Active 15 mg IVPUSH Q6H PRN Levothyroxine [Synthroid] Med 05/19/21 06:00 Pending 50 mcg PO ACBREAKFAST Lisinopril [Lisinopril] Med 05/19/21 09:00 Pending 10 mg PO DAILY Magnesium Oxide [Magnesium Oxide] Med 05/19/21 09:00 Pending 800 mg PO DAILY Methotrexate [Methotrexate] Med 05/19/21 09:00 Pending 25 mg PO DAILY Naloxone [Narcan] Med 05/18/21 15:42 Active 0.1 mg IVPUSH Q5M PRN Ondansetron [Zofran] Med 05/18/21 15:42 Active 4 mg IVPUSH Q6H PRN Orphenadrine [Norflex] Med 05/18/21 15:39 Pending 100 mg PO BID PRN cycloSPORINE [Restasis] Med 05/19/21 09:00 Pending 1 drop EYEBOTH DAILY modafiniL [Modafinil] Med 05/18/21 15:39 Pending 200 mg PO DAILY PRN oxyCODONE Med 05/18/21 15:42 Active 5 - 10 mg PO Q4H PRN Antiembolic Hose [OM.PC] Routine Oth 05/18/21 15:41 Ordered Ice Therapy [OM.PC] Per Unit Routine Oth 05/18/21 15:43 Ordered Sequential Compression Device [OM.PC] Per Unit Routine Oth 05/18/21 15:41 Ordered Resuscitation Status Routine Resus Stat 05/18/21 15:42 Ordered Medication Orders Aspirin (Aspirin 325 Mg Tab.Ec) 325 mg PO BID TRINO Last Admin: 05/19/21 08:46 Dose: 325 mg Documented by: MAJOR Cyclobenzaprine HCl (Cyclobenzaprine 10 Mg Tab) 10 mg PO BID PRN PRN Reason: Spasms Last Admin: 05/19/21 01:15 Dose: 10 mg Documented by: MUSTAPHA Ketorolac Tromethamine (Ketorolac 15 Mg/Ml Sdv) 15 mg IVPUSH Q6H PRN PRN Reason: Pain Last Admin: 05/19/21 05:57 Dose: 15 mg Documented by: MUSTAPHA Naloxone HCl (Naloxone 0.4 Mg/Ml Sdv) 0.1 mg IVPUSH Q5M PRN PRN Reason: Oversedation Non-Formulary Medication (Albuterol [Proair Hfa]) 1 - 2 puff INH Q4H PRN PRN Reason: Shortness of Breath Non-Formulary Medication (Cevimeline Hcl [Cevimeline Hcl]) 30 mg PO TID TRINO Non-Formulary Medication (Cholecalciferol (Vitamin D3) [Vitamin D3]) 1,000 mg PO DAILY TRINO Non-Formulary Medication (Cyclosporine [Restasis]) 1 drop EYEBOTH DAILY TRINO Non-Formulary Medication (Fluticasone Propionate) 1 spray NASBOTH DAILY TRINO Non-Formulary Medication (Hydroxychloroquine Sulfate [Plaquenil]) 400 mg PO DAILY TRINO Non-Formulary Medication (Levothyroxine [Synthroid]) 50 mcg PO ACBREAKFAST TRINO Non-Formulary Medication (Lisinopril [Lisinopril]) 10 mg PO DAILY TRINO Non-Formulary Medication (Magnesium Oxide [Magnesium Oxide]) 800 mg PO DAILY TRINO Non-Formulary Medication (Methotrexate [Methotrexate]) 25 mg PO DAILY TRINO Non-Formulary Medication (Modafinil [Modafinil]) 200 mg PO DAILY PRN PRN Reason: sjogrens symptoms Non-Formulary Medication (Orphenadrine [Norflex]) 100 mg PO BID PRN PRN Reason: Spasms Ondansetron HCl (Ondansetron 4 Mg/2 Ml Sdv) 4 mg IVPUSH Q6H PRN PRN Reason: Nausea/Vomiting Oxycodone HCl (Oxycodone 5 Mg Tab) 5 - 10 mg PO Q4H PRN PRN Reason: Pain Last Admin: 05/19/21 03:29 Dose: 10 mg Documented by: Admin: 05/18/21 23:09 Dose: 10 mg Documented by: Admin: 05/18/21 18:39 Dose: 10 mg Documented by: DONNA - Assessment Assessment (Free Text/Narrative):: POD#1 - right TKA - Plan Plan (Free Text/Narrative):: 1. Pt's dressing was with dried and a small area of more recent blood. Dressing change completed today. Small area of active bleeding noted inferiorly and a compression FLORENTIN was placed today. 2. D/C today. Post-op therapy goals met. Criteria for discharge met. The pt will have the assistance of her post-operatively. The pt's case was discussed with Dr. Johnson.
--- NOTE | 2021-05-28 10:17 | PCM.OPNOTE ---
- General Post-Op/Procedure Note Date of Surgery/Procedure: 05/18/21 Operative Procedure(s): right total knee arthroplasty Pre Op Diagnosis: right knee osteoarthrosis Post-Op Diagnosis: Same Anesthesia Technique: Local, MAC, Spinal Primary Surgeon: Azael Johnson Anesthesia Provider: Milagros Reynolds Lead Teacher: Simona Skinner Lead Teacher: Linda Mariano in mLs: 5 Complications: None Condition: Good Free Text/Narrative:: / 9mm 32x10 cemented
--- NOTE | 2021-05-31 17:52 | OR ---
DATE OF OPERATION: 05/18/2021 SURGEON: Azael Johnson MD OPERATION PERFORMED: Right total knee arthroplasty with [employer] robot[employer]. PREOPERATIVE DIAGNOSIS: Right knee osteoarthrosis. POSTOPERATIVE DIAGNOSIS: Right knee osteoarthrosis. ANESTHESIA: Local MAC with spinal. ANESTHESIA PROVIDER: Milagros Reynolds CRNA ASSISTANTS: Simona Skinner PA-C; and Linda Mariano LPN. ESTIMATED BLOOD LOSS: 5 mL. COMPLICATIONS: None. CONDITION: Stable. IMPLANTS: 1. [employer] size 5 cemented PS femur. 2. Kamron size 4 cemented [place] tibial baseplate. 3. Kamron size 4, 9 mm PS X3 polyethylene. 4. Kamron size 32 x 10 mm cemented asymmetric patella. DESCRIPTION OF PROCEDURE: The patient was identified in the preop holding area. Proper site was marked and identified by the surgeon. The patient was taken back to the operating theater where after adequate anesthesia, the patient's right lower extremity had a nonsterile tourniquet applied and it was sterilely prepped and draped in the usual sterile fashion. OR time-out was performed. The patient received 2 g IV Ancef. Leg abraham was then applied to the right lower extremity. At this time, the right lower extremity was exsanguinated. Tourniquet was insufflated to 250 mmHg . Standard anterior incision was made. Medial parapatellar arthrotomy was created. Deep fibers of the MCL were raised as well as anterior fat pad was resected. Attention was turned to the patella. Patella measured 21 mm; it was resected to 13 mm for 32 x 10 mm patella. Drill holes were then drilled. Attention was then turned to the femur. Two 4.0 pins were placed intra- incisionally for the [employer] robotic array and then 2 more were placed on the tibia 3 fingerbreadths below the tibial tubercle. The [employer] robotic arrays were placed on both the femur and the tibia then at this time as well as checkpoints on the femur and tibia. Hip center rotation was then obtained. The medial and lateral malleoli were marked. At this time, 40 points were obtained off the femur and the tibia for the [employer] robotic plan. The patient's knee was brought to full extension. Varus and valgus stresses were applied and then into 90 degrees of flexion with a curved osteotome. Varus and valgus stresses were applied. At this time, [id number] robotic plan was done to 19 mm gaps in both flexion and extension. L[employer] robotic arm was then brought in. A straight saw blade was then used for the tibial cut, the anterior femoral cut, the anterior chamfer cut, and the posterior femoral cut. All bony fragments were removed. Saw blade was then switched out and the distal femoral cut as well as the posterior chamfer cut was completed. At this time, medial and lateral menisci were resected as well as any posterior osteophytes. A 4 mm trial tibia was then placed, 5 mm trial femur was placed, and a 4 mm polyethylene trial liner was placed. The patient's knee was brought to full extension and flexion. Varus and valgus stresses were applied, was found to be stable with no instability. No signs of liftoff or loosening were noted. At this time, box cut was completed on the femur. The pins were removed from the femur and the tibia as well as the arrays and the checkpoints. Cement was mixed on the back table. All cut surfaces were irrigated with pulse lavage irrigation with Ancef and then completely dried. Once the cement was ready, the Kamron size 4 mm cemented [place] tibial base plate having been previously stamped and drilled, was then cemented in place on the tibia. The [employer] size 5 mm cemented femur was cemented into place. The patient had a Kamron size 4 mm polyethylene insert placed. The patient's knee was brought to full extension. Excess cement was removed. A [employer] size 32 x 10 mm cemented asymmetric patella was then cemented into place. 1 L of pulse lavage irrigation with Ancef was irrigated through the knee along with 400 mL of Irrisept irrigation. Periarticular injection was completed. Topical tranexamic acid and vancomycin powder were applied. A #2 barbed suture was used for closure of the medial parapatellar arthrotomy in flexion. 2-0 Vicryl and Stratafix were used for subcutaneous closure. Prineo was used for cutaneous closure. The patient had a sterile soft dressing applied. The tibial holes were closed with nylon, and this was also covered with a sterile soft dressing. The patient had an FLORENTIN wrap applied and was sent to PACU in stable condition. The patient tolerated the procedure well. MMODAL /[id number]
== END 2021-05-19 14:51 | disposition home or self-care (01) ==
LOC: JD.SDS 08:32 → JD.OB 17:43 → JD.SDS 05-19 14:51
PROVIDERS: ATTEND Orthopaedic Surgery
DX: M17.11 Unilateral primary osteoarthritis, right knee (principal); J45.909 Unspecified asthma, uncomplicated; I10 Essential (primary) hypertension; E03.9 Hypothyroidism, unspecified; G62.9 Polyneuropathy, unspecified; M35.00 Sjogren syndrome, unspecified; G47.30 Sleep apnea, unspecified; Z79.82 Long term (current) use of aspirin; Z79.899 Other long term (current) drug therapy; Z79.890 Hormone replacement therapy; Z98.890 Other specified postprocedural states
CPT/HCPCS: 27447; 73560; 97110; 97116; 97161; 97530; A9270; C1713; C1776; J0171; J0690; J0697; J1885; J2270; J2405; J2704; J2795; J3010; J3370; J7120; 01402; 99100

== ENCOUNTER 2021-07-10 14:37 | Emergency (ER) | payer MEDICARE, OTHER ==
[2021-07-10 15:07] VITALS: PULSE 86
--- NOTE | 2021-07-10 16:26 | EDM.PDOC ---
ED HPI GENERAL MEDICAL PROBLEM - General Chief Complaint: Lower Extremity Injury/Pain Stated Complaint: SWOLLEN FOOT Time Seen by Provider: 07/10/21 16:25 - History of Present Illness INITIAL COMMENTS - FREE TEXT/NARRATIVE: 76-year-old female presents the emergency room with right foot pain and swelling. Apparently this is been an ongoing issue she had a right knee replacement 6-7 weeks ago and the knee itself is doing fine but she is having increasing swelling in the lower extremity and calf and into her foot. The patient has started using support hose again on this extremity and it really seems to be helping but she is concerned about the calf tenderness getting worse and the pain into her foot the patient has a complicated history she has Sjogren's syndrome with neuropathy. She has been using Tylenol 650 mg 4 times a day and this seems to help during the day at night she has difficulty she has some leftover oxycodone 5 mg tablets from her surgery back in the middle of April and she is taking 1 at night this seems to facilitate her getting some sleep at night. Right Leg Pain Score (Numeric/FACES): 9 - Related Data Allergies Allergy/AdvReac Type Severity Reaction Status Date / Time No Known Allergies Allergy Verified 07/10/21 15:07 Home Meds: Home Meds Hydroxychloroquine Sulfate [Plaquenil] 200 mg PO BID 09/27/14 [History] Levothyroxine [Synthroid] 50 mcg PO ACBREAKFAST 09/27/14 [History] Lisinopril 10 mg PO DAILY 09/27/14 [History] Albuterol [Proair HFA] 1 - 2 puff INH Q4H PRN 11/02/16 [History] Cevimeline HCl 30 mg PO TID 11/02/16 [History] Cholecalciferol (Vitamin D3) [Vitamin D3] 1,000 mg PO DAILY 11/02/16 [History] Fish Oil/Borage/Flax/Om3,6,9 1 [Moffit 3-6-9 1,200 mg Softgel] 1,200 mg PO DAILY 11/02/16 [History] Fluticasone Propionate [Flonase Allergy Relief] 1 spray NASBOTH DAILY 11/02/16 [History] Magnesium Oxide 500 mg PO DAILY 11/02/16 [History] Multivitamin [Daily Multiple Vitamin] 1 tab PO DAILY 11/02/16 [History] cycloSPORINE [Restasis] 2 drop EYEBOTH DAILY 11/02/16 [History] modafiniL [Modafinil] 200 mg PO DAILY PRN 11/02/16 [History] Methotrexate 25 mg PO WEEKLY 02/07/20 [History] Acetaminophen [8 Hour Pain Relief] 650 mg PO Q6HR PRN 07/10/21 [History] Rosuvastatin [Crestor] 5 mg PO DAILY 07/10/21 [History] Zolpidem Tartrate [Ambien] 5 mg PO BEDTIME 07/10/21 [History] hydroCHLOROthiazide [Hydrochlorothiazide] 25 mg PO DAILY 07/10/21 [History] oxyCODONE 5 mg PO BEDTIME PRN #20 tab 07/10/21 [Rx] Past Medical History HEENT History: Reports: Cataract Other HEENT History: episodes of bronchospasms Cardiovascular History: Reports: Angina, Hypertension Respiratory History: Reports: Asthma, Sleep Apnea Other Respiratory History: use of cpap/bipap, history of bronchospasms Gastrointestinal History: Reports: Gastritis, GERD, Hemorrhoids, Hiatal Hernia Genitourinary History: Reports: None ATTENDING AMBULATORY CARE History: Reports: Musculoskeletal History: Reports: Back Pain, Chronic, Fracture Other Musculoskeletal History: musle spasms, osteopenia, right knee replacement Neurological History: Reports: Neuropathy, Peripheral Other Neuro History: balance complications, weakness;ataxia Psychiatric History: Reports: None Endocrine/Metabolic History: Reports: Hypothyroidism Other Endocrine/Metabolic History: sjogren's Hematologic History: Reports: Other (See Below) Other Hematologic History: electrolyte imbalances with dehydration Immunologic History: Reports: None Oncologic (Cancer) History: Reports: None Other Oncologic History: bone cytology Dermatologic History: Reports: None Other Dermatologic History: sjogrens - Past Surgical History Head Surgeries/Procedures: Reports: None HEENT Surgical History: Reports: Cataract Surgery, Oral Surgery Other HEENT Surgeries/Procedures: rhinoplasty, septoplasty Cardiovascular Surgical History: Reports: None Respiratory Surgical History: Reports: None GI Surgical History: Reports: Colonoscopy, EGD Other GI Surgeries/Procedures: sigmoidoscopy Female Surgical History: Reports: Section Endocrine Surgical History: Reports: None Neurological Surgical History: Reports: Other (See Below) Other Neurological Surgeries/Procedures: spinal tap Musculoskeletal Surgical History: Reports: Other (See Below) Other Musculoskeletal Surgeries/Procedures:: left fibula fracture, righ humerus fracture with surgery and right RCR Oncologic Surgical History: Reports: Other (See Below) Other Oncologic Surgeries/Procedures: chemotherapy for sjogrens Social & Family History - Tobacco Use Tobacco Use Status *Q: Never Tobacco User Second Hand Smoke Exposure: No - Caffeine Use Caffeine Use: Reports: Coffee Other Caffeine Use: daily - Recreational Drug Use Recreational Drug Use: No Review of Systems - Review of Systems Review Of Systems: See Below Constitutional: Reports: No Symptoms Respiratory: Reports: No Symptoms Cardiovascular: Reports: No Symptoms GI/Abdominal: Reports: No Symptoms Musculoskeletal: Reports: Other (See HPI) ED EXAM, GENERAL - Physical Exam Exam: See Below Exam Limited By: No Limitations General Appearance: Alert, No Apparent Distress Respiratory/Chest: No Respiratory Distress, Lungs Clear, Normal Breath Sounds Cardiovascular: Regular Rate, Rhythm, No Murmur, Other (Swelling right lower extremity) Extremities: Other (Lower extremity knee replacement site looks good she has some swelling below this and some calf tenderness as well) Neurological: Other (Vascular status of the right foot is normal for the patient she does have neuropathic changes) Course - Vital Signs Last Recorded V/S: Last Vital Signs Temp 36.3 C 07/10/21 15:03 Pulse 86 07/10/21 15:03 Resp 20 07/10/21 15:03 BP Pulse Ox 98 07/10/21 15:03 - Orders/Labs/Meds Labs: Laboratory Tests 07/10/21 07/10/21 07/10/21 Range/Units 17:02 17:02 17:02 WBC 3.23 L (3.98-10.04) K/mm3 RBC 4.26 (3.98-5.22) M/mm3 Hgb 12.7 (11.2-15.7) gm/dl Hct 39.7 (34.1-44.9) % MCV 93.2 (79.4-94.8) fl MCH 29.8 (25.6-32.2) pg MCHC 32.0 L (32.2-35.5) g/dl RDW Std Deviation 47.4 H (36.4-46.3) fL Plt Count 188 (182-369) K/mm3 MPV 8.4 L (9.4-12.3) fl Neut % (Auto) 46.7 (34.0-71.1) % Lymph % (Auto) 33.4 (19.3-51.7) % Clarke % (Auto) 12.1 (4.7-12.5) % Eos % (Auto) 5.9 H (0.7-5.8) Baso % (Auto) 1.9 H (0.1-1.2) % Neut # (Auto) 1.51 L (1.56-6.13) K/mm3 Lymph # (Auto) 1.08 L (1.18-3.74) K/mm3 Clarke # (Auto) 0.39 H (0.24-0.36) K/mm3 Eos # (Auto) 0.19 (0.04-0.36) K/mm3 Baso # (Auto) 0.06 (0.01-0.08) K/mm3 PT 11.2 (9.7-12.0) SECONDS INR 1.01 APTT 26.0 (21.7-31.4) SECONDS Sodium 141 (136-145) mEq/L Potassium 3.6 (3.5-5.1) mEq/L Chloride 106 (98-107) mEq/L Carbon Dioxide 25 (21-32) mEq/L Anion Gap 13.6 (5-15) BUN 14 (7-18) mg/dL Creatinine 0.7 (0.55-1.02) mg/dL Est Cr Clr Drug Dosing 68.57 mL/min Estimated GFR (MDRD) > 60 (>60) mL/min BUN/Creatinine Ratio 20.0 H (14-18) Glucose 86 (70-99) mg/dL Calcium 8.8 (8.5-10.1) mg/dL Total Bilirubin 0.4 (0.2-1.0) mg/dL AST 21 (15-37) U/L ALT 31 (14-59) U/L Alkaline Phosphatase 62 (46-116) U/L Total Protein 8.1 (6.4-8.2) g/dl Albumin 4.1 (3.4-5.0) g/dl Globulin 4.0 gm/dL Albumin/Globulin Ratio 1.0 (1-2) Meds: Medications Discontinued Medications Generic Name Dose Route Start Last Admin Trade Name Freq PRN Reason Stop Dose Admin Acetaminophen 650 mg 07/10/21 16:42 07/10/21 16:51 Acetaminophen 325 Mg Tab PO 07/10/21 16:43 650 mg NOW ONE Administration Departure - Departure Time of Disposition: 18:44 Disposition: Home, Self-Care 01 Clinical Impression: Right leg swelling - Discharge Information Prescriptions: oxyCODONE 5 mg PO BEDTIME PRN #20 tab PRN Reason: Pain Referrals: Evan Hogan MD [Primary Care Provider] - Forms: ED Department Discharge Additional Instructions: Return to the emergency room with any questions problems or worsening symptoms. Continue the Tylenol 650 mg every 4-6 hours as needed for pain. I sent a prescription for the oxycodone 5 mg tablets that you have been taking 1 nightly to assist with your nerve pain only at night. Use support hose on this leg it is probably one of the best things you can do for your leg at this time. Follow-up with your regular physician as needed and orthopedics as directed. Sepsis Event Note (ED) - Focused Exam Vital Signs: Vital Signs Temp Pulse Resp Pulse Ox 07/10/21 15:03 36.3 C 86 20 98
[2021-07-10] MEDS ORDERED: Acetaminophen 325 MG Tab PO ONE (16:42)
--- NOTE | 2021-07-10 17:46 | US ---
Right lower extremity deep venous ultrasound: Duplex and color Doppler evaluation was obtained of the right common femoral, proximal greater saphenous, superficial femoral, popliteal, posterior tibial and peroneal veins. Comparison: No previous venous imaging is available of the lower extremities. Findings: Normal phasic flow, augmentation and compression are seen. Impression: 1. No findings of deep venous thrombosis are seen within the right lower extremity. Diagnostic code #1
== END 2021-07-10 19:07 | disposition home or self-care (01) ==
LOC: JD.ED 14:37
DX: M79.89 Other specified soft tissue disorders (principal); I10 Essential (primary) hypertension; E03.9 Hypothyroidism, unspecified; Z79.899 Other long term (current) drug therapy
CPT/HCPCS: 36415; 80053; 85025; 85610; 85730; 93971-26-RT; 93971-RT; 99284; 99284-25; A9270-GY

== ENCOUNTER 2022-02-11 14:31 | Emergency (ER) | payer MEDICARE, OTHER ==
[2022-02-11] MEDS ORDERED: Sodium Chloride 0.9% 10 ML Syringe FLUSH PRN (16:17)
[2022-02-11 17:05] LABS: CORONAVIRUS COVID-19 NAA POSITIVE (NEGATIVE)
[2022-02-11] MEDS ORDERED: Famotidine 20 MG/2 ML SDV IVPUSH PRN (17:11)
[2022-02-11] MEDS ORDERED: EPINEPHrine 1 MG/ML SDV IM PRN (17:11)
[2022-02-11] MEDS ORDERED: methylPREDNISolone Sodium Succinate 125 MG/2 ML SDV IVPUSH PRN (17:11)
[2022-02-11] MEDS ORDERED: diphenhydrAMINE 50 MG/ML SDV IVPUSH PRN (17:11)
[2022-02-11] MEDS ORDERED: Sodium Chloride 0.9% 10 ML Syringe FLUSH SCH (17:15)
[2022-02-11 18:43] VITALS: BP 152/70; PULSE 76
== END 2022-02-11 19:30 | disposition home or self-care (01) ==
LOC: JD.ED 14:31
DX: U07.1 COVID-19 (principal); I10 Essential (primary) hypertension; K21.9 Gastro-esophageal reflux disease without esophagitis; E03.9 Hypothyroidism, unspecified; Z77.22 Contact with and (suspected) exposure to environmental tobacco smoke (acute) (chronic)
CPT/HCPCS: 0240U; 36415; 71045; 80053; 85025; 86140; 99283; M0222; Q0222; 99284